=== PATIENT | female | born 1985 | race Caucasian/White ===

== ENCOUNTER → 2018-04-14 | Outpatient (CLI) | payer OTHER | LOC: FIMAGING 09:22 | PROVIDERS: ATTEND Obstetrics & Gynecology | DX: Z34.91 Encounter for supervision of normal pregnancy, unspecified, first trimester (principal); Z3A.09 9 weeks gestation of pregnancy ==

== ENCOUNTER → 2018-06-23 | Outpatient (CLI) | payer OTHER | LOC: FIMAGING 09:05 | PROVIDERS: ATTEND Obstetrics & Gynecology | DX: O35.2XX0 Maternal care for (suspected) hereditary disease in fetus, not applicable or unspecified (principal); Z3A.19 19 weeks gestation of pregnancy ==